=== PATIENT | female | born 1985 | race Caucasian/White ===

== ENCOUNTER 2017-12-09 22:47 | Observation (INO) | payer BC ==
[~2017-12-09] VITALS: Ht 160 cm; Wt 83.9 kg
[~2017-12-09 22:47] MED LIST: DOCU240C67 PO; IBUP800T37 PO; LEVO-3 PO; LORA1TAB69 PO; Lanolin TP; PER PO; PNV91TAB3
[2017-12-09] MEDS ORDERED: HYDROmorphone HCL 2 MG TAB PO PRN (22:50)
[2017-12-09 23:15] LABS: PLATELET COUNT, AUTOMATED 136 K/uL (150-450)
[2017-12-09] MEDS: ACETA/BUTAL/CAFF 325/50/40 TAB PO PRN ×2 (23:31→23:46)
[2017-12-09] MEDS ORDERED: FAMOTIDINE(*) 20MG/50ML PREMIX 50 ML IVPB PRN (23:32)
[2017-12-09] MEDS ORDERED: LIDOCAINE 1% LOCAL 300 MG/30ML INJ PRN (23:35)
[2017-12-09] MEDS ORDERED: METOCLOPRAMIDE 10 MG/2 ML SDV IVP PRN (23:35)
[2017-12-09] MEDS ORDERED: cefOXitin/DEX(*) 2GM/50ML PREM 50 ML IVPB PRN (23:35)
[2017-12-10 01:06] VITALS: BP 146/94; Ht 160 cm; Wt 83.9 kg
[2017-12-10] MEDS: NIFEdipine 10 MG CAP PO SCH ×3 (01:40→09:00)
[2017-12-10] MEDS: ACETA/BUTAL/CAFF 325/50/40 TAB PO PRN ×2 (06:07→09:59)
[2017-12-10 06:14] LABS: PLATELET COUNT, AUTOMATED 117 K/uL (150-450)
[2017-12-10] MEDS ORDERED: LR(*) 1000 ML BAG 1,000 ML IV PRN (08:53)
[2017-12-10] MEDS ORDERED: LABETALOL HCL 100 MG/20ML VIAL IVP PRN (08:55)
[2017-12-10] MEDS ORDERED: FLUSH 10 ML SYR IVP PRN (08:55)
[2017-12-10] MEDS ORDERED: ONDANSETRON 4 MG/2 ML VIAL IV PRN (08:55)
[2017-12-10] MEDS: BETAMETHASONE/ACETATE 6 MG/1ML IM SCH (09:23)
--- NOTE | 2017-12-10 09:33 | History & Physical ---
History of Present Illness Age of Patient: 32 : 2 Para or TPAL: 0101 EDC per LMP: Jan 08, 2018 Estimated Gestational Age: 35.6 Chief Complaint headache History of Present Illness The patient is a 32 year old 2 para 0101 admitted at 35 6/7 weeks estimated gestational age with an estimated date of delivery 01/08/18. Patient is admitted with complaint of headache. No vaginal bleeding. Good movement and occasional contractions. She was evaluated for active labor. She had an uncomplicated course prior to last evening. She has history of preeclampsia with early delivery last for severe preeclampsia. She had elevated BP at home with home BP cuff. Her headache was not relieved with Tylenol at home. Symptoms started yesterday. No RUQ pain. She did note some blurry vision and believed symptoms were similar to last . Her headache has improved and denies any other PIH symptoms. Her record was reviewed. History Allergies: Coded Allergies: Sulfa (Sulfonamide Antibiotics) (Verified Allergy, Intermediate, RASH, ) Med Rec Home Meds Active Scripts Oxycodone/Acetaminophen (OXYCODONE/ACETAMINOPHEN 5MG/325 MG) 5 Mg/325 Mg Tab, 1- 2 TAB PO Q4H Y for PAIN, #30 TAB Prov:CINDA ROSE MD 02/29/16 [Lanolin] 7 GM OINT No Conflict Check, 0 GM TP PRN Y for DISCOMFORT FOR NURSING MOTHERS, TUBE Prov:CINDA ROSE MD 02/29/16 Ibuprofen (IBUPROFEN) 800 Mg Tablet, 800 MG PO Q8H@02,10,18 for 10 Days, TAB Prov:CINDA ROSE MD 02/29/16 Docusate Calcium (DOCUSATE CALCIUM) 240 Mg Capsule, 240 MG PO BID for 10 Days, CAPSULE Prov:CINDA ROSE MD 02/29/16 Reported Medications Pnv95/Ferrous Fumarate/FA ( Caplet) 28 Mg Iron-800 Mcg Tablet 02/24/16 Loratadine/Pseudoephedrine (CLARITIN-D 24 HOUR TABLET) 1 Each Tab.er.24h, 1 EACH PO 02/24/16 Levothyroxine Sodium (LEVOTHYROXINE SODIUM) 100 Mcg Tablet, 125 MCG PO QDAY, TAB 02/24/16 Review of Systems Constitutional: No Fever, No Weight Loss Neurological: No Syncope, No Confusion Eyes: Vision Change, No Loss of Vision ENT: No Hearing Loss, No Sinus Congestion Cardiovascular: No Chest Pain, No Palpitations Respiratory: No Shortness of Breath, No Cough Gastrointestinal: No Nausea, No Vomiting, No Diarrhea Genitourinary: No Dysuria, No Hematuria, No Urinary Incontinence Musculoskeletal: No Pain, No Sprain, No Strain Psychiatric: No Depression, No Anxiety Exam General Exam Vital Signs Vital Signs Date Time Temp Pulse Resp B/P (MAP) Pulse Ox O2 Delivery O2 Flow Rate FiO2 12/10/17 01:06 97.8 91 16 146/94 (111) 97 Room Air General Apperance: Alert/Awake/No Acute Distress Neuro: No Gross deficits Eyes: Normal Extraocular Movement & Vison Cardiovascular: Regular Rate and Rhythm Respiratory: Clear to Auscultation Abdomen: Gravid - Non-Tender : No CVA Tenderness Musculoskeletal: No Weakness/Pain Extremities: No Cyanosis,Clubbing or Edema Integumentary: Skin Intact without Lesions or Rash Psychological: Alert & Oriented X3, Appropriate Mood & Affect Uterine Contractions(Q min): 0 Fetus Heart Tones: 130 FHT Category: I Medical Decision Making Data Points Result Diagram: 12/10/1757 12/10/1757 Assessment and Plan Problems: (1) Hypertension during Assessment & Plan: BP ELEVATED ON ADMISSION MILD, URINE WASN'T REPORTED ELEVATED WITH REVIEW OF LABS LAST NOC. WAS GIVEN PROCARDIA FOR CONTRACTIONS WHICH HAVE IMPROVED. HEADACHE IMPROVED THIS AM WITH MEDICINE. 24 HR URINE PARTIALLY DISPOSED OF SO WILL RESTART. WILL CHECK SERIAL LABS, AND MONITOR FOR SIGNS OF SEVERE PREECLAMPSIA. IF SEVERE SIGNS DEVELOP WILL START MAGNESIUM FOR SEIZURE PROPHYLAXIS. CONCERN SIGNIFICANT WILL GET GBS AND START CELESTONE FOR LUNG MATURITY. PATIENT AND AWARE OF PLAN AND ALL QUESTIONS ANSWERED REGARDING STATUS AND POSSIBLE EARLY DELIVERY AND RISKS. Copies to: RADHA CABRERA MD Problem Qualifiers (1) Hypertension during : Hypertension in type: unspecified type Trimester: third trimester Qualified Codes: O16.3 - Unspecified maternal hypertension, third trimester RADHA CABRERA MD Dec 10, 2017 09:33
[2017-12-10 14:09] LABS: PLATELET COUNT, AUTOMATED 128 K/uL (150-450)
[2017-12-10 22:07] VITALS: BP 116/74
[2017-12-10 22:16] LABS: PLATELET COUNT, AUTOMATED 136 K/uL (150-450)
[2017-12-10] MEDS ORDERED: ACET500T68 PO (22:20)
[2017-12-11 06:03] LABS: PLATELET COUNT, AUTOMATED 134 K/uL (150-450)
[2017-12-11] MEDS: BETAMETHASONE/ACETATE 6 MG/1ML IM SCH (09:13)
--- NOTE | 2017-12-11 09:16 | Labor Progress Note ---
Labor Subjective Progress Notes Subjective slept through night, no headache, had increase in uteine activity this am, headache returned, mild. No RUQ pain or vision changes Labor Pain: Mild Neurological: Headache Eyes: No Visual Disturbances Labor Objective Vital Signs Vital Signs Date Time Temp Pulse Resp B/P (MAP) Pulse Ox O2 Delivery O2 Flow Rate FiO2 12/10/17 22:07 96.7 89 15 116/74 (88) 97 Room Air Uterine Contractions(Q min): 7 Uterine Contraction Strength: Mild UC Resting Tone: Soft Fetus Heart Tones: 120 FHT Category: I Other Result Diagram: 12/11/1745 12/11/1745 Assessment and Plan Problems: (1) Hypertension during Assessment & Plan: labs stable, not apparently spilling protein on 24 hour collection. will continue with celestone and observation. Problem Qualifiers (1) Hypertension during : Hypertension in type: unspecified type Trimester: third trimester Qualified Codes: O16.3 - Unspecified maternal hypertension, third trimester RADHA CABRERA MD Dec 11, 2017 09:15
[2017-12-11 14:13] LABS: PLATELET COUNT, AUTOMATED 145 K/uL (150-450)
== END 2017-12-11 17:24 | disposition home or self-care (01) ==
LOC: OB 22:47
PROVIDERS: ADMIT Obstetrics & Gynecology; ATTEND Obstetrics & Gynecology
DX: O16.3 Unspecified maternal hypertension, third trimester (principal); Z3A.35 35 weeks gestation of pregnancy
CPT/HCPCS: 36415; 82570; 83615; 84156; 84550; 85025; 87081; G0378; G0379; J0702; J7120; 82040; 82247; 82310; 82374; 82435; 82565; 82947; 84075; 84132; 84155; 84295; 84450; 84460; 84520; 96372

== ENCOUNTER 2017-12-14 07:30 | Observation (INO) | payer BC ==
[~2017-12-14] VITALS: Ht 160 cm; Wt 85.7 kg
[2017-12-14 07:30] VITALS: BP 133/88
[~2017-12-14 07:30] MED LIST changes: +ACET500T68 PO
[2017-12-14 08:13] VITALS: BP 133/88; Ht 160 cm; Wt 85.7 kg
[2017-12-14 08:17] LABS: PLATELET COUNT, AUTOMATED 116 K/uL (150-450)
== END 2017-12-14 10:43 | disposition home or self-care (01) ==
LOC: OB 07:30 → INTOOBSV 07:30
PROVIDERS: ADMIT Student in an Organized Health Care Education/Training Program; ATTEND Student in an Organized Health Care Education/Training Program
DX: O26.893 Other specified pregnancy related conditions, third trimester (principal); Z3A.36 36 weeks gestation of pregnancy
CPT/HCPCS: 81001; 82570; 83615; 84156; 84550; 85025; 86850; 86900; 86901; G0378; G0379; 36415; 82040; 82247; 82310; 82374; 82435; 82565; 82947; 84075; 84132; 84155; 84295; 84450; 84460; 84520

== ENCOUNTER 2017-12-21 05:33 | Inpatient (IN) | payer BC ==
[2017-12-14 08:13] VITALS: BMI 33.5
[2017-12-21] VITALS (18 sets, daily range): BP systolic 105–122; BP diastolic 61–82
[2017-12-21] MEDS ORDERED: LR(*) 1000 ML BAG 1,000 ML IV SCH (05:34)
[2017-12-21] MEDS ORDERED: METOCLOPRAMIDE 10 MG/2 ML SDV IVP ONE (05:35)
[2017-12-21] MEDS ORDERED: FAMOTIDINE 20 MG/50 ML PREMIX IVPB ONE ×2 (05:35→05:40)
[2017-12-21] MEDS ORDERED: cefOXitin/DEX(*) 2GM/50ML PREM 50 ML IVPB ONE (05:35)
[2017-12-21] MEDS ORDERED: CITRIC ACID/SOD CITRATE 30 ML PO ONE (05:35)
[2017-12-21] MEDS ORDERED: FLUSH 10 ML SYR IVP PRN ×2 (05:35→09:05)
[2017-12-21] MEDS ORDERED: FENTANYL/ROPIVACAINE 100 ML BAG EPI PRN (05:40)
[2017-12-21] MEDS ORDERED: SCOPOLAMINE 1.5 MG PATCH TOP PRN (05:40)
[2017-12-21] MEDS ORDERED: LIDO/EPI 2% MPF 1:200,000 20ML EPI PRN (05:40)
[2017-12-21] MEDS ORDERED: fentaNYL CITR 100 MCG/2 ML AMP IT PRN (05:40)
[2017-12-21] MEDS ORDERED: BUPIVACAINE 0.5% INJ 30ML VIAL EPI PRN (05:40)
[2017-12-21] MEDS ORDERED: EPIDURAL KEYS XX PRN (05:40)
[2017-12-21] MEDS ORDERED: METOCLOPRAMIDE 10 MG/2 ML SDV IV PRN ×2 (05:40→09:05)
[2017-12-21] MEDS ORDERED: LIDOCAINE/PF 2% 200MG/10ML AMP 200 MG/10 ML AMPUL EPI PRN (05:40)
[2017-12-21] MEDS ORDERED: ONDANSETRON 4 MG/2 ML VIAL IVP PRN (05:40)
[2017-12-21] MEDS ORDERED: BUPIVACAINE 0.25% MPF INJ EPI PRN (05:40)
[2017-12-21 06:19] LABS: PLATELET COUNT, AUTOMATED 130 K/uL (150-450)
[2017-12-21] MEDS ORDERED: ONDANSETRON 4 MG/2 ML VIAL ONE (06:37)
[2017-12-21] MEDS ORDERED: MORPHINE PF 5 MG/10 ML AMP ONE (06:38)
[2017-12-21] MEDS ORDERED: OXYTOCIN 30 UNIT/D5LR 500 ML 500 ML ONE (06:44)
--- NOTE | 2017-12-21 06:58 | Anesthesia OB Pre-Anes Eval ---
History of Present Illness OB Anesthesia Diagnosis: gestational hypertension, repeat c/section Current Complication: gestational hypertention EDC: Jan 08, 2018 : 2 Para: 1 Result Diagram: 12/21/17 0600 Height (Inches): 63.00 Weight (Pounds): 189 BMI Calculated: 33.48 Past Medical History Medical History: no pertinent history Surgical History: noncontributory Previous Anesthesia: general, epidural Attended Childbirth Classes?: No Hx Anesthesia Reactions: No Hx Family Anesthesia Reaction: No Home Meds Reported Medications Pnv95/Ferrous Fumarate/FA ( Caplet) 28 Mg Iron-800 Mcg Tablet 02/24/16 Levothyroxine Sodium (LEVOTHYROXINE SODIUM) 100 Mcg Tablet, 125 MCG PO QDAY, TAB 02/24/16 Discontinued Reported Medications Acetaminophen (TYLENOL EXTRA STRENGTH) 500 Mg Tablet, 500 MG PO PRN Y for HEADACHE, TAB 12/10/17 Allergies: Coded Allergies: Sulfa (Sulfonamide Antibiotics) (Verified Allergy, Intermediate, RASH, ) Anesthesia OB ROS Airway Class: l GI ROS: NPO Last Solids Date: Dec 20, 2017 Last Solids Time: 20:00 ASA Classification: 2 Assessment and Plan Anesthesia Plan: SAB Assessment: Plan SAB with Duramorph for repeat . Pt did have N/V intraop with previous C/S, giving zofran IVP, Reglan IVPB, and zantac IVPB preoperatively. CLAUDINE MILLER CRNA Dec 21, 2017 06:58
--- NOTE | 2017-12-21 07:24 | History & Physical ---
History of Present Illness Age of Patient: 32 : 2 Para or TPAL: 1001 EDC per LMP: Jan 11, 2018 Estimated Gestational Age: 37 Chief Complaint hypertension History of Present Illness The patient is a 32 year old 2 para 1001 admitted at 37 weeks estimated gestational age with an estimated date of delivery 01/11/18 . Patient is admitted with complaint of PIH. No vaginal bleeding. Good movement and occasional contractions. She was evaluated for active labor. She had course complicated by PIH. Her record was reviewed. History Allergies: Coded Allergies: Sulfa (Sulfonamide Antibiotics) (Verified Allergy, Intermediate, RASH, ) Med Rec Home Meds Reported Medications Pnv95/Ferrous Fumarate/FA ( Caplet) 28 Mg Iron-800 Mcg Tablet 02/24/16 Levothyroxine Sodium (LEVOTHYROXINE SODIUM) 100 Mcg Tablet, 125 MCG PO QDAY, TAB 02/24/16 Discontinued Reported Medications Acetaminophen (TYLENOL EXTRA STRENGTH) 500 Mg Tablet, 500 MG PO PRN Y for HEADACHE, TAB 12/10/17 Exam General Exam Cardiovascular: Regular Rate and Rhythm Respiratory: Clear to Auscultation Abdomen: Gravid - Non-Tender Extremities: No Edema Uterine Contractions(Q min): 0 Fetus Heart Tones: 130 FHT Category: I Medical Decision Making Data Points Result Diagram: 12/21/17 0600 Assessment and Plan Problems: (1) Hypertension during Assessment & Plan: blood pressures improved with rest. Received celestone for flm. History of c section will plan RLTCS Copies to: RADHA CABRERA MD Problem Qualifiers (1) Hypertension during : Hypertension in type: unspecified type Trimester: third trimester Qualified Codes: O16.3 - Unspecified maternal hypertension, third trimester RADHA CABRERA MD Dec 21, 2017 07:24
[2017-12-21] MEDS ORDERED: PHENYLEPHRINE/NS/PF 0.4MG/10ML ONE (07:43)
[2017-12-21] MEDS ORDERED: OXYTOCIN 10 UNIT/ML SDV ONE (07:48)
[2017-12-21] MEDS ORDERED: SCOPOLAMINE 1.5 MG PATCH TD ONE (08:23)
[2017-12-21] MEDS ORDERED: KETOROLAC 30 MG/ML VIAL ONE (08:34)
[2017-12-21] MEDS ORDERED: DEXAMETHASONE SOD 4 MG/ML VIAL ONE (08:36)
[2017-12-21] MEDS ORDERED: NS 0.9% IRRIGATION 1000ML PLCT IR ONE ×2 (08:37)
[2017-12-21] MEDS ORDERED: OXYTOCIN 30 UNIT/D5LR 500 ML 500 ML IV PRN (09:01)
[2017-12-21] MEDS ORDERED: FAMOTIDINE(*) 20MG/50ML PREMIX 50 ML IVPB PRN (09:01)
[2017-12-21] MEDS ORDERED: PROMETHAZINE 25 MG/ML 1 ML AMP IVP PRN (09:05)
[2017-12-21] MEDS ORDERED: ONDANSETRON 4 MG/2 ML VIAL IV PRN (09:05)
[2017-12-21] MEDS ORDERED: LANOLIN OINT 7 GM TUBE TP PRN (09:05)
--- NOTE | 2017-12-21 09:13 | Post Operative Note ---
Operative Note - CONCRETE TECHNICIAN Operative Day Date: Dec 21, 2017 Time: 08:30 Physicians Surgeon: DEBORAH Casting Assistant: CÉSAR Anesthesia: ANGELA Diagnosis Pre-Op Diagnosis: IUP AT 37 WEEKS H/O C SECTION PIH Post-Op Diagnosis: SAME Procedure Findings: FEMALE APGARS 9,9 WT 2718 GM NORMAL UTERUS OVARIES AND TUBES [id number] Procedure(s): RLTCS Complications: 0 Fluids Fluids: 1700 CC LR IV Estimated Blood Loss: 600 CC Dictated Date OP Note Dictated: Dec 21, 2017 Time OP Note Dictated: 09:07 Copies to: RADHA CABRERA MD, JOHN MD Dec 21, 2017 09:13
[2017-12-21] MEDS ORDERED: DLR(*) 1000 ML BAG 1,000 ML IV ONE (10:12)
[2017-12-21] MEDS: DLR(*) 1000 ML BAG 1,000 ML IV PRN ×2 (10:34→16:18)
[2017-12-21] MEDS: ACETAMINOPHEN(*)1000 MG/100 ML 100 ML IVPB SCH ×3 (10:41→21:59)
[2017-12-21] MEDS: SIMETHICONE 80 MG CHEW CHEW SCH ×3 (12:53→20:13)
[2017-12-21] MEDS: KETOROLAC 30 MG/ML VIAL IVP SCH ×2 (14:00→19:54)
[2017-12-21] MEDS ORDERED: diphenhydrAMINE 50 MG/ML VIAL IVP PRN (14:15)
--- NOTE | 2017-12-21 16:36 | OPERATIVE REPORT 1 ---
EVENT DATE: December 21, 2017 SURGEON: Parveen Swift MD ANESTHESIOLOGIST: Charlie Calderón CRNA ANESTHESIA: Intrathecal. FIELD STAFF: Patrick Layne MD PREOPERATIVE DIAGNOSES 1. Intrauterine at 37 weeks. 2. History of section. 3. -induced hypertension. POSTOPERATIVE DIAGNOSES 1. Intrauterine at 37 weeks. 2. History of section. 3. -induced hypertension. PROCEDURE PERFORMED Repeat low transverse section. COMPLICATIONS None. FLUIDS Lactated Ringer's 1700 mL IV. ESTIMATED BLOOD LOSS 600 mL INDICATIONS The patient is a 37-year-old 2, para 1, admitted at 37 weeks. She had elevated blood pressures reported at home in the severe range; however, on admission, pressures normalized on rest. Her PIH labs were normal. Spot check on her urine was greater than 300 for protein, but 24-hour urine was less than 300. She had intermittent headaches. Her pressures improved with rest at home. After discussion of risks and alternatives, the patient desired to deliver as indicated at 37 weeks. She had a previous and was consented for repeat low transverse . FINDINGS Female with Apgars 9 at one minute and 9 at five minutes, weighing 2718 g. Normal-appearing uterus, ovaries, and tubes. DESCRIPTION OF PROCEDURE After informed consent was obtained, the patient was taken to the operating room with her IV running and placed in the sitting position where intrathecal anesthetic was obtained without difficulty. She was then placed in the supine position with a leftward tilt. A Forman catheter was placed in the OR. She was prepped and draped in the usual fashion. A previous Pfannenstiel skin incision was followed and carried through to the underlying fascia with the Bovie. Fascia was nicked in the midline and extended laterally with Quintanilla scissors. The rectus fascia was dissected off the rectus muscles with both blunt and sharp dissection on the superior, then inferior aspects of the incision. The rectus muscles were divided in the midline. The peritoneum was entered sharply with Metzenbaum scissors. The peritoneal incision was extended superiorly and then inferiorly for visualization of the bladder. The bladder blade was placed. A bladder flap was created with Metzenbaum scissors. The bladder blade was then replaced and a low transverse uterine incision made with a scalpel. The uterine incision was extended laterally with digital technique by the grinder operator tool. The infant's vertex was delivered through the uterine incision. The oropharynx and nasopharynx were bulb suctioned. The remainder of the delivered. The infant was dried and noted to have a spontaneous cry and spontaneous movement of all four extremities. The cord was clamped times two and cut. Cord blood was obtained. The infant was passed to the warmer where nursing personnel were in attendance. The placenta delivered intact manually. The uterus was inverted initially and was replaced. The placenta was removed. The uterus had been exteriorized and cleared of all clot and debris. The uterine incision was closed with 0 Vicryl in a running locked fashion, and then a second imbricating layer was used as there was some oozing from the left apex. This was made hemostatic with two O'Wilkeson sutures. The posterior cul-de- sac was then copiously irrigated. The uterine incision was once again inspected and noted to be hemostatic. The uterus was returned to the abdominal cavity. The left and right pericolic gutters were cleared of all clot and debris. The uterine incision was once again inspected and noted to be hemostatic. The peritoneum and rectus muscles were approximated with 3-0 Vicryl Plus in a running fashion. The subfascial compartment was inspected, and any bleeding was made hemostatic with the Bovie. It was irrigated. The fascia was closed with 0 Vicryl in a running fashion. The subcutaneous space was irrigated. Any bleeding was made hemostatic with the Bovie. The subcutaneous space was approximated with 3-0 Vicryl Plus in a running fashion. The skin was closed with kana. All sponge, lap, needle, and instrument counts were correct. The patient was taken to the recovery room in stable condition. MARIS
[2017-12-21] MEDS: FAMOTIDINE 20 MG TAB PO SCH (20:13)
[2017-12-21] MEDS: DOCUSATE CALCIUM 240 MG CAP PO SCH (20:13)
--- NOTE | 2017-12-21 21:36 | OB/GYN Progress Note ---
OB Subjective Progress Notes Subjective Pain controlled, Tolerating diet and activity. Baby . Normal lochia. GI: NEG Nausea, NEG Vomiting Pain: Mild OB Objective Physical Exam Vital Signs Date Time Temp Pulse Resp B/P (MAP) Pulse Ox O2 Delivery O2 Flow Rate FiO2 12/21/17 20:20 99.2 79 18 114/68 (83) 96 12/21/17 16:00 Room Air Intake and Output 12/22/17 07:00 Intake Total 1000 ml Output Total 4950 ml Balance -3950 ml Intake Oral 0 ml IV Total 1000 ml Output Urine Total 1550 ml Estimated Blood Loss 1200 ml Other 2200 ml Cardiovascular: Regular Rate and Rhythm Respiratory: Clear to Auscultation Abdomen: Soft, Non-Tender, Non-Distended, Bowel Sounds Present Extremities: No Edema Result Diagram: 12/21/17 0600 Assessment and Plan Problems: (1) Hypertension during (2) care following delivery Assessment & Plan: Pain controlled, Tolerating diet and activity. Baby . Normal lochia. Problem Qualifiers (1) Hypertension during : Hypertension in type: unspecified type Trimester: third trimester Qualified Codes: O16.3 - Unspecified maternal hypertension, third trimester RADHA CABRERA MD Dec 21, 2017 21:36
[2017-12-22 04:00] VITALS: BP 110/77
[2017-12-22] MEDS: ACETAMINOPHEN(*)1000 MG/100 ML 100 ML IVPB SCH ×5 (05:49→22:27)
[2017-12-22 05:58] LABS: PLATELET COUNT, AUTOMATED 100 K/uL (150-450)
[2017-12-22] MEDS: IBUPROFEN 800 MG TAB PO SCH ×2 (07:36→16:44)
[2017-12-22 07:44] VITALS: BP 113/77
--- NOTE | 2017-12-22 08:39 | OB/GYN Progress Note ---
OB Subjective Progress Notes Subjective Pain controlled, Tolerating diet and activity. Baby . Normal lochia. GI: NEG Nausea, NEG Vomiting : Voiding Well Pain: Mild OB Objective Physical Exam Vital Signs Date Time Temp Pulse Resp B/P (MAP) Pulse Ox O2 Delivery O2 Flow Rate FiO2 12/22/17 07:44 Room Air 12/22/17 07:44 98.8 78 16 113/77 (89) 97 Cardiovascular: Regular Rate and Rhythm Respiratory: Clear to Auscultation Abdomen: Soft, Non-Tender, Non-Distended, Bowel Sounds Present Incision: Clean, Dry, Intact, Dressing Extremities: No Edema Result Diagram: 12/22/17 0535 Assessment and Plan Problems: (1) Hypertension during Status: Resolved (2) care following delivery Assessment & Plan: Pain controlled, Tolerating diet and activity. Baby . Normal lochia. Problem Qualifiers (1) Hypertension during : Hypertension in type: unspecified type Trimester: third trimester Qualified Codes: O16.3 - Unspecified maternal hypertension, third trimester RADHA CABRERA MD Dec 22, 2017 08:39
[2017-12-22] MEDS ORDERED: OXYC-373 PO (08:40)
[2017-12-22] MEDS ORDERED: IBUP800T37 PO (08:40)
--- NOTE | 2017-12-22 08:41 | OB/GYN Discharge Summary ---
Discharge Summary Reason for Hosp/Final Diag: (1) Hypertension during Status: Resolved (2) care following delivery Hospital Course & Plan: RLTCS performed no complications day 2, Pain controlled , Tolerating diet and activity. Baby . Normal lochia. Lates Vital Signs Vital Signs Date Time Temp Pulse Resp B/P (MAP) Pulse Ox O2 Delivery O2 Flow Rate FiO2 12/22/17 07:44 Room Air 12/22/17 07:44 98.8 78 16 113/77 (89) 97 Weight (Pounds): 189 Result Diagram: 12/22/17 0535 Condition: Improved Discharge: Home, Self Shelter Meds Active Scripts Oxycodone Hcl/Acetaminophen (OXYCODONE-ACETAMINOPHEN 5-325) 1 Each Tablet, 1-2 EACH PO Q4H Y for PAIN, #30 TAB 0 Refills TAKE 1-2 TABLET NEEDED FOR PAIN - NO CLOSER THAN EVERY 4 HOURS. Prov:RADHA SWIFT MD 12/22/17 Ibuprofen (IBUPROFEN) 800 Mg Tablet, 1 TAB PO Q8H, #30 TAB 0 Refills Take with food every 8 hours. Prov:RADHA SWIFT MD 12/22/17 Reported Medications Pnv95/Ferrous Fumarate/FA ( Caplet) 28 Mg Iron-800 Mcg Tablet 02/24/16 Levothyroxine Sodium (LEVOTHYROXINE SODIUM) 100 Mcg Tablet, 125 MCG PO QDAY, TAB 02/24/16 Discontinued Reported Medications Acetaminophen (TYLENOL EXTRA STRENGTH) 500 Mg Tablet, 500 MG PO PRN Y for HEADACHE, TAB 12/10/17 Follow up with: Dr. Swift [phone] Follow up in: 6 wks PP or PO, 2 wks PO Discharge Diet: As Tolerates Discharge Activity: Pelvic Rest Copies to: RADHA SWIFT MD Problem Qualifiers (1) Hypertension during : Hypertension in type: unspecified type Trimester: third trimester Qualified Codes: O16.3 - Unspecified maternal hypertension, third trimester RADHA SWIFT MD Dec 22, 2017 08:41
[2017-12-22] MEDS: SIMETHICONE 80 MG CHEW CHEW SCH ×4 (09:40→20:24)
[2017-12-22] MEDS: DOCUSATE CALCIUM 240 MG CAP PO SCH ×2 (09:41→20:24)
[2017-12-22] MEDS: FAMOTIDINE 20 MG TAB PO SCH ×2 (09:41→20:24)
--- NOTE | 2017-12-22 09:43 | Anesthesia Post Eval Note ---
Anesthesia Post Eval Note Pt able to participate in Eval: Yes Cardiovascular Status: Satisfactory Respiratory Status: Satisfactory Pain Managment: Satisfactory PO Nausea/Vomiting: Satisfactory Temperature Management: Satisfactory Mental Status: Satisfactory, Alert, Oriented X3 Post-Op Hydration Status: Satisfactory, Tolerating PO Well, Voiding w/o Difficulty Anesthesia Type: SAB Anesthesia Tolerance: VSS, afebrile, ambulatory without S/S PDPH. Duramorph spinal has been effective for postoperative analgesia, minimal nausea. Pt did have some itching yesterday evening, treated with IV benadryl, symptoms tolerable. No other complaints or problems. CLAUDINE MILLER CRNA Dec 22, 2017 09:43
[2017-12-22 12:00] VITALS: BP 111/90
[2017-12-22] MEDS: HYDROmorphone HCL 2 MG TAB PO PRN ×3 (13:33→22:12)
[2017-12-22 16:00] VITALS: BP 118/77
[2017-12-22 19:20] VITALS: BP 126/79
[2017-12-23] MEDS: IBUPROFEN 800 MG TAB PO SCH ×2 (00:05→07:52)
[2017-12-23 00:08] VITALS: BP 110/80
[2017-12-23] MEDS: HYDROmorphone HCL 2 MG TAB PO PRN (03:56)
[2017-12-23 03:58] VITALS: BP 120/84
[2017-12-23 07:00] VITALS: BP 128/86
--- NOTE | 2017-12-23 07:28 | OB/GYN Progress Note ---
OB Subjective Progress Notes Subjective Pain controlled, Tolerating diet and activity. Baby . Normal lochia. GI: POS Flatus, NEG Nausea, NEG Vomiting : Voiding Well Pain: Mild OB Objective Physical Exam Vital Signs Date Time Temp Pulse Resp B/P (MAP) Pulse Ox O2 Delivery O2 Flow Rate FiO2 12/23/17 07:00 98.3 91 16 128/86 (100) 96 Room Air Cardiovascular: Regular Rate and Rhythm Respiratory: Clear to Auscultation Abdomen: Soft, Non-Tender, Non-Distended, Bowel Sounds Present Incision: Clean, Dry, Intact, Dressing, Jessica Extremities: No Edema Result Diagram: 12/22/17 0535 Assessment and Plan Problems: (1) Hypertension during Status: Resolved (2) care following delivery Assessment & Plan: Pain controlled, Tolerating diet and activity. Baby . Normal lochia. Problem Qualifiers (1) Hypertension during : Hypertension in type: unspecified type Trimester: third trimester Qualified Codes: O16.3 - Unspecified maternal hypertension, third trimester RADHA CABRERA MD Dec 23, 2017 07:28
[2017-12-23] MEDS ORDERED: INFLUENZA VIRUS VAC 0.5 ML SYR IM ONLY ONE (09:00)
== END 2017-12-23 11:00 | disposition home or self-care (01) | DRG 765 ==
LOC: OB 05:33
PROVIDERS: ADMIT Obstetrics & Gynecology; ATTEND Obstetrics & Gynecology
PROC: 10D00Z1 Extraction of Products of Conception, Low, Open Approach (ICD-10-PCS; principal; 2017-12-21 07:30)
DX: O13.4 Gestational [pregnancy-induced] hypertension without significant proteinuria, complicating childbirth (principal); O98.32 Other infections with a predominantly sexual mode of transmission complicating childbirth; Z37.0 Single live birth; E03.9 Hypothyroidism, unspecified; J45.909 Unspecified asthma, uncomplicated; R51 Headache; O99.89 Other specified diseases and conditions complicating pregnancy, childbirth and the puerperium; O99.284 Endocrine, nutritional and metabolic diseases complicating childbirth; O99.52 Diseases of the respiratory system complicating childbirth; Z3A.37 37 weeks gestation of pregnancy; Z88.2 Allergy status to sulfonamides; Z87.42 Personal history of other diseases of the female genital tract; Z87.892 Personal history of anaphylaxis; O34.211 Maternal care for low transverse scar from previous cesarean delivery
CPT/HCPCS: 36415; 85025; 86850; 86900; 86901; J0131; J0694; J1100; J1200; J1885; J2270; J2370; J2405; J2590; J2765; J3490; J7120

== ENCOUNTER → 2018-07-19 | Outpatient (CLI) | payer BC ==
[2017-12-14 08:13] VITALS: BMI 33.5
[~2018-07-19] MED LIST changes: +LOOVRAL PO; +NORG1TAB96 PO; +OXYC-373 PO
--- NOTE | 2018-07-19 19:40 | RADIOLOGY IMAGING REPORT ---
FACILITY: [facility] PATIENT NAME: Lindsay Madrid : 1985 MR: [id number] V: [id number] EXAM DATE: ORDERING PHYSICIAN: SINTIA WINTERS TECHNOLOGIST: Location: [facility] Patient: Lindsay Madrid : 1985 Visit/Account:[id number] Date of Sevice: 07/19/2018 SACRUM COCCYX Indication: Pain when sitting Comparison: None available. Findings: There is no acute fracture-dislocation of of the bones of the visualized sacrum and coccyx. The bilateral SI joints are patent. No significant erosive changes identified. IMPRESSION: 1. No acute osseous abnormality of the bilateral SI joints. Report Dictated By: Víctor Patel at 07/19/2018 7:35 PM Report E-Signed By: Víctor Patel at 07/19/2018 7:36 PM WSN:[id number]
== END ==
LOC: RAD 18:26
PROVIDERS: ATTEND Student in an Organized Health Care Education/Training Program
DX: R10.2 Pelvic and perineal pain (principal)
CPT/HCPCS: 72220